=== PATIENT | male | born 1985 | race African-American/Black ===

== ENCOUNTER 2017-07-24 16:10 | Emergency (ER) | payer MEDICAID, OTHER ==
[2017-07-24 16:26] VITALS: BP 149/101
[2017-07-24] MEDS ORDERED: ACETAMINOPHEN 325 MG TABLET PO ONE (16:27)
[2017-07-24] MEDS ORDERED: PENICILLIN V POTASSIUM 500 MG TABLET PO ONE (16:27)
[2017-07-24] MEDS ORDERED: LIDOCAINE 2% VISCOUS SOLN 20 ML UDCUP PO ONE (16:27)
[2017-07-24] MEDS ORDERED: IBUPROFEN 800 MG TABLET PO ONE (16:27)
--- NOTE | 2017-07-24 16:30 | ER Document Report ---
HPI - HPI Patient complains to provider of: toothache Quality of pain: Achy Pain Level: 5 Context: 32 yo male with hx TMJ is c/o teeth hurting due to decay bilaterl lower jaw. Associated Symptoms: None Exacerbated by: Other - chewing Relieved by: Denies Similar symptoms previously: Yes Recently seen / treated by doctor: No - ROS ROS below otherwise negative: Yes Systems Reviewed and Negative: Yes All other systems reviewed and negative Past Medical History - General Information source: Patient - Social History Smoking Status: Current Every Day Smoker Frequency of alcohol use: Occasional Drug Abuse: None Lives with: Spouse/Significant other Family History: Reviewed & Not Pertinent - Medical History Medical History: Negative Surgical Hx: Negative Vertical Provider Document - CONSTITUTIONAL Agree With Documented VS: Yes Exam Limitations: No Limitations General Appearance: No Apparent Distress - INFECTION CONTROL TRAVEL OUTSIDE OF THE [place] IN LAST 30 DAYS: No - HEENT HEENT: Normocephalic Notes: Bilateral top second bicuspids with holes - NECK Neck: Supple. negative: Lymphadenopathy-Left, Lymphadenopathy-Right Course - Vital Signs Vital signs: Temp Pulse Resp BP Pulse Ox 98.7 F 89 16 149/101 H 98 07/24/17 16:25 07/24/17 16:25 07/24/17 16:25 07/24/17 16:25 07/24/17 16:25 Discharge - Discharge Clinical Impression: Dental pain and decay Condition: Good Disposition: HOME, SELF-CARE Instructions: Acetaminophen, Dentist, Ibuprofen (General) ([facility]), Toothache ([facility] ), Topical Lidocaine ([facility]) Additional Instructions: Penicillin Tylenol Motrin See the dentist Return to the emergency room for any facial swelling or fever Prescriptions: Ibuprofen [Motrin 800 mg Tablet] 800 mg PO Q8HP PRN #30 tablet PRN Reason: Penicillin V Potassium [Penicillin Vk 500 mg Tablet] 500 mg PO QID #40 tablet Referrals: LOCALMD,NO [NO LOCAL MD] - Follow up as needed
== END 2017-07-24 16:41 | disposition home or self-care (01) ==
LOC: ER 16:10
DX: K02.9 Dental caries, unspecified (principal); K08.89 Other specified disorders of teeth and supporting structures; F17.200 Nicotine dependence, unspecified, uncomplicated
CPT/HCPCS: 99282; J3490

== ENCOUNTER 2018-03-18 16:19 | Emergency (ER) | payer SELFPAY ==
[2018-03-18] MEDS ORDERED: HYDROCODONE/ACETAMINOPHEN 5-325 MG TABLET PO ONE (17:07)
[2018-03-18] MEDS ORDERED: BUPIVACAINE HCL 0.5 % INJ/PF 30 ML SDV INJ ONE (17:10)
--- NOTE | 2018-03-18 17:12 | ER Document Report ---
HPI - HPI Time Seen by Provider: 03/18/18 17:01 Onset: This afternoon Onset/Duration: Sudden Quality of pain: Achy Pain Level: 4 Context: Patient states that he accidentally kicked some tile this afternoon injuring his left great toe. Patient also complains of pain into the midfoot area. Patient with partial nail avulsion. Associated Symptoms: Other - Left great toe injury Exacerbated by: Movement Relieved by: Denies Similar symptoms previously: No Recently seen / treated by doctor: No - ROS ROS below otherwise negative: Yes Systems Reviewed and Negative: Yes All other systems reviewed and negative - GASTROINTESTINAL Gastrointestinal: DENIES: Nausea - MUSCULOSKELETAL Musculoskeletal: REPORTS: Extremity pain - left big toe - DERM Skin Color: Normal Skin Problems: Laceration Past Medical History - General Information source: Patient - Social History Smoking Status: Current Every Day Smoker Chew tobacco use (# tins/day): No Smoking Education Provided: Yes Frequency of alcohol use: Social Drug Abuse: None Lives with: Family Family History: Reviewed & Not Pertinent Patient has suicidal ideation: No Patient has homicidal ideation: No - Past Medical History Cardiac Medical History: Reports: Hx Hypertension Renal/ Medical History: Denies: Hx Peritoneal Dialysis Surgical Hx: Negative Vertical Provider Document - CONSTITUTIONAL Agree With Documented VS: Yes Exam Limitations: No Limitations General Appearance: WD/WN, No Apparent Distress - INFECTION CONTROL TRAVEL OUTSIDE OF THE [place] IN LAST 30 DAYS: No - HEENT HEENT: Atraumatic, Normocephalic - NECK Neck: Normal Inspection - RESPIRATORY Respiratory: Breath Sounds Normal, No Respiratory Distress - CARDIOVASCULAR Cardiovascular: Regular Rate Pulses: Normal: Dorsalis pedis - MUSCULOSKELETAL/EXTREMETIES Musculoskeletal/Extremeties: MAEW, Tender - Tenderness to left great toe with partial nail avulsion. Patient with left midfoot tenderness, no edema or ecchymosis to midfoot area - NEURO Level of Consciousness: Awake, Alert, Appropriate Motor/Sensory: No Motor Deficit - DERM Integumentary: Warm, Dry Course - Vital Signs Vital signs: Temp Pulse Resp BP Pulse Ox 98.4 F 65 17 142/87 H 100 03/18/18 16:36 03/18/18 16:36 03/18/18 16:36 03/18/18 16:36 03/18/18 16:36 - Diagnostic Test Radiology reviewed: Image reviewed, Reports reviewed Procedures - Immobilization Left Foot Pre-Proc Neuro Vasc Exam: Normal Immobilizer type: Post-op shoe Performed by: PCT Post-Proc Neuro Vasc Exam: Normal Alignment checked and good: Yes - Laceration/Wound Repair Left Toe Great toe Wound length (cm): 1 Wound's Depth, Shape: Irregular Anesthetic type: 0.5% Bupivacaine Wound explored: Clean Wound Repaired With: Sutures Suture Size/Type: 4:0, Nylon Number of Sutures: 1 Post-procedure wound care: Sterile dressing applied, Splint applied Post-procedure NV exam normal: Yes Complications: No Notes: 03/18/18 18:42 Patient with partial nail avulsion to left great toe, after digital block was performed with 0.5% bupivacaine a single stitch was used to anchor nail down. Discharge - Discharge Clinical Impression: Nail bed injury Toe injury Qualifiers: Encounter type: initial encounter Laterality: left Qualified Code(s): S99.922A - Unspecified injury of left foot, initial encounter Condition: Stable Disposition: HOME, SELF-CARE Instructions: Sprained Toe ([facility]) Additional Instructions: Return immediately for any new or worsening symptoms Followup with your primary care provider, call tomorrow to make a followup appointment Suture removal in 10-12 days Prescriptions: Cephalexin Monohydrate [Keflex 500 mg Capsule] 500 mg PO Q6H 3 Days capsule Hydrocodone/Acetaminophen [Welcome 5-325 mg Tablet] 1 tab PO Q6 PRN #10 tablet PRN Reason: Forms: Smoking Cessation Education, Return to Work Referrals: [facility] [Provider Group] - Follow up as needed
--- NOTE | 2018-03-18 17:42 | RADIOLOGY REPORT (SQ) ---
EXAM DESCRIPTION: FOOT LEFT COMPLETE COMPLETED DATE/TIME: 03/18/2018 5:31 pm REASON FOR STUDY: kicked Taz negrete gr toe/foot pain COMPARISON: None. NUMBER OF VIEWS: Three views. TECHNIQUE: AP, lateral and oblique radiographic images acquired of the left foot. LIMITATIONS: None. FINDINGS: MINERALIZATION: Normal. BONES: No acute fracture or dislocation. No worrisome bone lesions. JOINTS: No effusions. SOFT TISSUES: No soft tissue swelling. No foreign body. OTHER: No other significant finding. IMPRESSION: NEGATIVE STUDY OF THE LEFT FOOT. NO RADIOGRAPHIC EVIDENCE OF ACUTE INJURY. TECHNICAL DOCUMENTATION: JOB ID: [id number] [employer]- All Rights Reserved Reading location - IP/workstation name: [email or web address]
[2018-03-18 19:05] VITALS: BP 151/90
== END 2018-03-18 19:16 | disposition home or self-care (01) ==
LOC: ER 16:19
PROC: 0HQNXZZ Repair Left Foot Skin, External Approach (ICD-10-PCS; principal; 2018-03-18)
DX: S99.922A Unspecified injury of left foot, initial encounter (principal); M79.672 Pain in left foot; W22.8XXA Striking against or struck by other objects, initial encounter; F17.200 Nicotine dependence, unspecified, uncomplicated; I10 Essential (primary) hypertension
CPT/HCPCS: 99283